=== PATIENT | male | born 1990 | race Caucasian/White ===

== ENCOUNTER 2024-06-04 10:24 | Emergency (ER) | payer OTHER, SELFPAY ==
[2024-06-04 10:31] VITALS: BP 153/94; PULSE 80; RESP 18; TEMP 37.3; O2SAT 100
--- NOTE | 2024-06-04 10:45 | ED_ITS ---
HPI - Dental/Oral General Chief complaint: Dental/Oral Stated complaint: Toothache Time Seen by Provider: 06/04/24 11:01 Mode of arrival: ambulatory Limitations: no limitations History of Present Illness HPI Narrative: 33-year-old male presents with concern for right lower dental pain. Reports he has had some symptoms for about 2-3 months foot over the last 2 days it has gotten worse. He reports swelling in the area. He has a dentist appointment and Karen JOSHUA Complaint: tooth pain Related Data Allergies Allergy/AdvReac Type Severity Reaction Status Date / Time No Known Allergies Allergy Mild Verified 06/04/24 10:42 Review of Systems Review of Systems: CONSTITUTIONAL: Denies malaise, chills, sweats, or fever. EYES: Denies visual changes ENT: Denies rhinorrhea, congestion, sinus pain, otalgia or sore throat. Reports right lower dental pain CARDIOVASCULAR: Denies chest pain, palpitations RESPIRATORY: Denies cough or dyspnea. SKIN: Denies rash or itching. MUSCULOSKELETAL: Denies myalgia. NEUROLOGIC: Denies numbness, weakness, or headache. All systems reviewed & are unremarkable except as noted in HPI and below PMFSH Comments At time of signature, agree with nursing past medical, surgical, social and family history. There is no relevant family history pertinent to the presenting complaint Exam Narrative: GENERAL: Well-appearing, well-nourished, and in no acute distress. HEAD: Normocephalic, atraumatic. EYES: PERRLA, sclera clear ENT: Nares clear, turbinates pink, no rhinorrhea or epistaxis. Mucous membranes moist. TM pearly alicea with sharp light reflex bilaterally; no tragal tenderness. Oropharynx without erythema or lesions. Tonsils not enlarged and without exudate. No Missing teeth, broken teeth. caries noted with swelling in the right jaw NECK: Supple. No lymphadenopathy. CHEST: No respiratory distress. Speaks in full sentences. HEART: Regular rate and rhythm. SKIN: Warm, dry, no visible rash. NEURO: Alert and oriented x3. PSYCH: Normal mood and affect Course Course Emergency Course: Patient is aware of diagnosis, understands and agrees to treatment plan. Anticipatory guidance given. Patient agrees to follow-up as directed and is a horvath of reasons to seek care at the emergency department. Portions of this record may have been created with voice recognition software Level of Care: Express Care Visit Vital Signs Vital signs: Vital Signs Temperature 99.2 F 06/04/24 10:31 Pulse Rate 80 06/04/24 10:31 Respiratory Rate 18 06/04/24 10:31 Blood Pressure 153/94 H 06/04/24 10:31 Pulse Oximetry 100 06/04/24 10:31 Oxygen Delivery Room Air 06/04/24 10:31 Temperature 99.2 F 06/04/24 10:31 Pulse Rate 80 06/04/24 10:31 Respiratory Rate 18 06/04/24 10:31 Blood Pressure 153/94 H 06/04/24 10:31 Pulse Oximetry 100 06/04/24 10:31 Oxygen Delivery Room Air 06/04/24 10:31 Reviewed. MDM - Dental/Oral MDM Narrative Medical decision making narrative: I evaluated this in the [facility]. History is obtained from patient who is an independent historian and physical exam was performed.? Available medical records were reviewed. ? Exam findings and relevant testing show no acute concerns or changes; patient is non-toxic appearing and is in no distress. Patients pain and complaint coupled with physical findings are consistant with dentalgia. There are no focal signs of space occupying lesions that are compromising to the airway; no dysphagia, odynophagia, dysphonia, or dyspnea. No uvular deviation or soft palate edema. Patient is non-toxic appearing. The floor of the mouth is soft with no signs of Edilberto's Angina; no induration below mandible, no neck pain. Patient is without trismus or drooling and able to swallow secretions. Patient is felt appropriate for discharge home with dental follow up. ? Differential diagnosis and treatment plan were discussed with the patient. Patient agrees with discussion and after shared medical decision making agrees with plan of care. All questions were answered to the patient's satisfaction. Patient is appropriate for outpatient treatment and follow-up. Differential Diagnosis Differential diagnosis: Likely gingival abscess, dental caries, toothache, dental abscess, fracture of tooth and aphthous ulcer Critical Care Time Critical Care Time Critical Care Time: No Discharge Plan Discharge Clinical Impression: Toothache Patient Disposition: Home, Self-Care Condition: Stable Instructions: Antibiotic Form, Toothache (ED) Additional Instructions: Take antibiotic as directed Avoid temperature extremes May apply heat or ice to the face Gentle brushing and flossing Take 2 extra strength Tylenol, 4 ibuprofen, 80 mg of caffeine at same time. You can do this every 6 hours. Do not do this for more than 2 - 3 days. You can substitute 25 mg Benadryl at nighttime for caffeine to help you sleep. Do this for no more than 3 days. Follow-up with the dentist as soon as possible - see the list provided Patient Language: Estonian Prescriptions: New clindamycin HCl 300 mg capsule 300 mg PO Q8H 7 Days Qty: 21 0RF Follow-up/Referrals: Soham,Dorina Guzman APN [Primary Care Provider] - Time of Disposition: 11:09
--- OUTSIDE RECORDS SUMMARY | 2024-06-04 11:32 | XMS_ITS | Patient Health Summary ---
Author Organization [facility] Address [address] [place] [address] Care Team Providers Care Angle Shearer Name Role Phone Nikki Jonas Primary Care Provider Note from [facility],non-owned Affiliates and Associated Physician Practices is amultiple site organization consisting of ambulatory clinics and hospital sitesin [place], [place], [place] and [place]. This disclosure is being madepursuant to the Care Everywhere program and may not contain all information available regarding this patient. Last updated 18.[facility] Allergies * Hydrocodone(Rash) -High Criticality Medications * Be aware that medications may not be up to date on this document. Alwaysverify current medications with the patient. * phytonadione (MEPHYTON) 5 MG tablet(Started 01/25/2018) Take 8 tablets by mouth once daily 1 refill remaining Active Problems Problem Noted Date Diagnosed Date Acute blood loss anemia 01/21/2018 Social History Tobacco Use Types Packs/Day Years Used Date Smoking Tobacco: Former Cigarettes 0.5 2 2 006 - 2008 Smokeless Tobacco: Never Alcohol Use Standard Drinks/Week Comments No 0 (1 standard drink = 0.6 oz pur e alcohol) Sex and Gender Information Value Date Recorded Sex Assigned at Not on file Gender Identity Not on file Sexual Orientation Not on file Last Filed Vital Signs Vital Sign Reading Time Taken Comments Blood Pressure 126/72 01/24/2018 3:32 PM CDT Pulse 73 01/24/2018 3:32 PM CDT Temperature 37.2 C (99 F) 01/24/2018 3:32 PM CDT Respiratory Rate 16 01/24/2018 11:37 AM CDT Oxygen Saturation 100% 01/24/2018 3:32 PM CDT Inhaled Oxygen Concentration - - Weight 71.4 kg (157 lb 6.4 oz) 01/24/2018 4:28 A M CDT Height 182.9 cm (6') 01/21/2018 3:55 PM CDT Body Mass Index 21.35 01/21/2018 3:55 PM CDT Procedures * CARDIAC PROCEDURE ORDER(Performed 03/06/2018) * CARDIAC EKG ORDER(Performed 01/29/2018) * LAB RESULTS ORDER(Performed 01/29/2018) * PTT [facility](Performed 01/24/2018) * CBC W/O DIFFERENTIAL(Performed 01/24/2018) * PT-INR [facility](Performed 01/24/2018) * COMPREHENSIVE METABOLIC PANEL(Performed 01/24/2018) * FACTOR VIII ASSAY [facility](Performed 01/23/2018) * PT-INR [facility](Performed 01/23/2018) * COMPREHENSIVE METABOLIC PANEL(Performed 01/23/2018) * CBC W/O DIFFERENTIAL(Performed 01/23/2018) * CBC W/O DIFFERENTIAL(Performed 01/23/2018) * TRANSFUSE FRESH FROZEN PLASMA UNIT(S)(Performed 01/23/2018) * TRANSFUSE RED BLOOD CELL LEUKOREDUCED UNIT(S)(Performed 01/23/2018) * CBC W/O DIFFERENTIAL(Performed 01/22/2018) * LAB MISC TEST (NOT BLOOD)(Performed 01/22/2018) * PT INHIBITOR SCREEN(Performed 01/22/2018) * PT-INR [facility](Performed 01/22/2018) * FACTOR VII ASSAY(Performed 01/22/2018) * FACTOR II ASSAY(Performed 01/22/2018) * PTT INHIBITOR(Performed 01/22/2018) * CBC W/O DIFFERENTIAL(Performed 01/22/2018) * CBC W/O DIFFERENTIAL(Performed 01/22/2018) * FACTOR V ASSAY(Performed 01/22/2018) * PT-INR [facility](Performed 01/22/2018) * TRANSFUSE FRESH FROZEN PLASMA UNIT(S)(Performed 01/22/2018) * TRANSFUSE FRESH FROZEN PLASMA UNIT(S)(Performed 01/22/2018) * TRANSFUSE RED BLOOD CELL LEUKOREDUCED UNIT(S)(Performed 01/22/2018) * CBC W/O DIFFERENTIAL(Performed 01/22/2018) * CT ABDOMEN PELVIS W CONTRAST(Performed 01/22/2018) Performed for Acute blood loss anemia * PTT [facility](Performed 01/22/2018) * PT-INR [facility](Performed 01/22/2018) * COMPREHENSIVE METABOLIC PANEL(Performed 01/22/2018) * CBC W/O DIFFERENTIAL(Performed 01/22/2018) * LAB MISC TEST(Performed 01/22/2018) * PT-INR [facility](Performed 01/22/2018) * CBC W/O DIFFERENTIAL(Performed 01/22/2018) * EKG 12-LEAD(Performed 01/21/2018) Performed for Elevated INR * ABO TYPE: RETYPE-PATIENT RESULT ONLY(Performed 01/21/2018) * URINALYSIS REFLEX TO MICROSCOPIC NO CULTURE(Performed 01/21/2018) * URINE DRUG SCREEN IMMUNOASSAY(Performed 01/21/2018) * DRUG SCREEN EXPANDED TOXICOLOGY URINE PANEL(Performed 01/21/2018) * CULTURE URINE(Performed 01/21/2018) * CULTURE BLOOD(Performed 01/21/2018) * PATHOLOGY PERIPHERAL SMEAR REVIEW(Performed 01/21/2018) * PREPARE FFP UNIT(S)(Performed 01/21/2018) * PREPARE RBC LEUKOREDUCED UNIT(Performed 01/21/2018) * PREPARE FFP UNIT(S)(Performed 01/21/2018) * PREPARE RBC LEUKOREDUCED UNIT(Performed 01/21/2018) * PREPARE RBC LEUKOREDUCED UNIT(Performed 01/21/2018) * TYPE + SCREEN PANEL(Performed 01/21/2018) * SALICYLATE LEVEL BLOOD(Performed 01/21/2018) * ACETAMINOPHEN LEVEL(Performed 01/21/2018) * FIBRINOGEN ACTIVITY(Performed 01/21/2018) * BASIC METABOLIC PANEL (CALCIUM TOTAL)(Performed 01/21/2018) * GGT(Performed 01/21/2018) * DIFFERENTIAL MANUAL(Performed 01/21/2018) * WARFARIN LEVEL(Performed 01/21/2018) * LDH BLOOD(Performed 01/21/2018) * HEPATIC FUNCTION PANEL(Performed 01/21/2018) * CBC W AUTO DIFFERENTIAL(Performed 01/21/2018) * PHOSPHORUS BLOOD(Performed 01/21/2018) * MAGNESIUM BLOOD(Performed 01/21/2018) * LACTIC ACID BLOOD(Performed 01/21/2018) * PTT [facility](Performed 01/21/2018) * PT-INR [facility](Performed 01/21/2018) * MANUAL DIFFERENTIAL REVIEWED(Performed 01/21/2018) * CULTURE BLOOD(Performed 01/21/2018) Results * CARDIAC PROCEDURE ORDER (03/06/2018 8:11 AM ELECTR[employer]OR [employer]SEMBLER) Narrative 03/06/2018 8:11 AM [employer]BLER Ordered by an unspecified provider. Scanned Document CARDIAC SERVICES ORD ERABLES * CARDIAC EKG ORDER (01/29/2018 2:14 PM CDT) Narrative 01/29/2018 2:14 PM CDT Ordered by an unspecified provider. Scanned Document CARDIAC SERVICES ORD ERABLES * LAB RESULTS ORDER (01/29/2018 11:26 AM CDT) Narrative 01/29/2018 11:26 AM CDT Ordered by an unspecified provider. Scanned Document LAB - THERAPEUTIC DR UG MONITORING ORDERABLES * (ABNORMAL) PTT [facility] (01/24/2018 10:35 AM CDT) Only the most recent of3 resultswithin the time period is included. APTT 58.2(H) 23.0 - 38.4 Seconds 01/24/2018 11:04 AM CDT [facility] Comment: Suggested therapeutic range for full dose I.V. heparin therapy for venous thromboembolism is 66.0-91.0 seconds. Blood BLOOD SPECIMEN / Unknown Lab Venipuncture / Unknown 01/24/2018 10:35 AM CDT 01/24/2018 10:51 AM CDT Morena Mcduffie MD LAB - COAGULATION OR DERABLES [facility] [address] [phone] * (ABNORMAL) PT-INR [facility] (01/24/2018 10:35 AM CDT) Only the most recent of7 resultswithin the time period is included. Pathologist [facility] PT 24.0(H) 12.1 - 14.8 Seconds 01/24/2018 11:03 AM [facility] INR 2.2 See Comment 01/24/2018 11:03 AM [facility] Comment: The suggested therapeutic range for standard coumadin (warfarin) therapy is an INR of 2.0-3.0. For high-risk patients (Mechanical Mitral Valve Prosthesis, etc.), the suggested prophylactic therapeutic range is an INR of 2.5-3.5. Blood BLOOD SPECIMEN / Unknown Lab Venipuncture / Unknown 01/24/2018 10:35 AM CDT 01/24/2018 10:51 AM CDT Oz Beverly DO LAB - COAGULATION OR DERABLES Performing Organization Address City/State/[facility] Co de Phone Number [address] [phone] * (ABNORMAL) CBC W/O DIFFERENTIAL (01/24/2018 10:35 AM CDT) Only the most recent of9 resultswithin the time period is included. WBC 10.8(H) 3.5 - 10.5 10 3/uL 01/24/2018 10:56 AM [facility] RBC 2.98(L) 4.30 - 5.70 10 6/uL 01/24/2018 10:56 AM [facility] Hemoglobin 9.2(L) 13.5 - 17.5 g/dL 01/24/2018 10:56 AM [facility] Hematocrit 27.9(L) 39.0 - 50.0 % 01/24/2018 10:56 AM [facility] MCV 93.6 81.0 - 97.0 fL 01/24/2018 10:56 AM [facility] MCH 30.9 28.0 - 34.0 pg 01/24/2018 10:56 AM [facility] MCHC 33.0 32.0 - 36.0 g/dL 01/24/2018 10:56 AM [facility] Platelet Count 531(H) 150 - 400 10 3/uL 01/24/2018 10:56 AM [facility] RDW-SD 45.8 36.0 - 50.0 fL 01/24/2018 10:56 AM [facility] RDW-CV 13.7 11.2 - 14.8 % 01/24/2018 10:56 AM [facility] MPV 8.9(L) 9.3 - 12.8 fL 01/24/2018 10:56 AM [facility] Blood BLOOD SPECIMEN / Unknown Lab Venipuncture / Unknown 01/24/2018 10:35 AM CDT 01/24/2018 10:51 AM CDT Reagan Jenkins DO LAB - HEMATOLOGY ORD ERABLES [facility] [address] [phone] * (ABNORMAL) COMPREHENSIVE METABOLIC PANEL (01/24/2018 10:35 AM CDT) Only the most recent of3 resultswithin the time period is included. BUN 11 7 - 26 mg/dL 01/24/2018 11:27 AM [facility] Creatinine 0.8 0.6 - 1.2 mg/dL 01/24/2018 11:27 AM [facility] Sodium 142 136 - 145 mmol/L 01/24/2018 11:27 AM [facility] Potassium 3.7 3.5 - 4.5 mmol/L 01/24/2018 11:27 AM [facility] Chloride 104 98 - 107 mmol/L 01/24/2018 11:27 AM [facility] CO2 26 22 - 29 mmol/L 01/24/2018 11:27 AM [facility] Glucose 110 70 - 115 mg/dL 01/24/2018 11:27 AM [facility] Calcium 9.4 8.4 - 10.2 mg/dL 01/24/2018 11:27 AM [facility] Protein Total 6.5 6.0 - 8.3 g/dL 01/24/2018 11:27 AM [facility] Albumin 3.3(L) 3.4 - 5.0 g/dL 01/24/2018 11:27 AM [facility] Bilirubin Total 1.7(H) 0.2 - 1.2 mg/dL 01/24/2018 11:27 AM [facility] Alkaline Phosphatase 58 40 - 150 Units/L 01/24/2018 11:27 AM [facility] ALT 12 0 - 55 Units/L 01/24/2018 11:27 AM [facility] AST 19 5 - 34 Units/L 01/24/2018 11:27 AM [facility] Anion Gap 16 8 - 18 01/24/2018 11:27 AM [facility] BUN/Creatinine Ratio 14 7 - 23 01/24/2018 11:27 AM [facility] Osmolality Calculated 294 270 - 300 mOsm/kg 01/24/2018 11:27 AM [facility] Albumin/Globulin Ratio 1.0(L) 1.1 - 2.3 01/24/2018 11:27 AM [facility] eGFR >60 >60 mL/min/1.7 3 m2 01/24/2018 11:27 AM [facility] Blood BLOOD SPECIMEN / Unknown Lab Venipuncture / Unknown 01/24/2018 10:35 AM CDT 01/24/2018 10:51 AM T Oz Beverly DO LAB - CHEMISTRY MARITZA NUNN [address] [phone] * FACTOR VIII ASSAY [facility] (01/23/2018 9:55 AM CDT) Pathologist [facility] Factor VIII Activity 218 45 - 225 U/dL 01/23/2018 11:34 AM [facility] Comment: Biologic population variability within the Factor VIII Activity reference range is strongly correlated with ABO blood group phenotype. Blood group specific ranges are as follows: BLOOD TYPE O: Factor VIII = 45-180 BLOOD TYPE A: Factor VIII = 60-200 BLOOD TYPE B AND AB COMBINED: Factor VIII = 80-225 Increased levels of Factor VIII Activity may be observed in patients with liver disease, inflammatory disease, uremia, vasculitis and generalized, advanced atherosclerosis. Blood BLOOD SPECIMEN / Unknown Venipuncture / Unknown 01/23/2018 9:55 AM CDT 01/23/2018 9:58 AM CDT Aleksander Rodriguez MD LAB - COAGULAT ION ORDERABLES Performing Organization Address City/[facility]/ZIP Co de Phone Number [facility] [address] [place] [address] * TRANSFUSE FRESH FROZEN PLASMA UNIT(S) (01/23/2018 4:12 AM CDT) Monica Mesa MD NURSING - BLOOD PROD TRANSFUSION * TRANSFUSE RED BLOOD CELL UNIT(S) (01/23/2018 2:08 AM CDT) Monica Mesa MD NURSING - BLOOD PROD TRANSFUSION * LAB MISC TEST (NOT BLOOD) (01/22/2018 6:38 PM CDT) Test Name 02/08/2018 2:34 PM CDT [facility] RE[facility] NON INTERF Test Result 02/08/2018 2:34 PM CDT [facility] NON INTERF Comment Ref Lab 8 2:34 PM CDT [facility] NON INTERF Other URINE / Unknown Collection / Unknown 01/22/2018 6:38 PM CDT 01/22/2018 6:38 PM CDT Oz Beverly DO LAB - BODY FLUID ORD ERABLES Performing Organization Address [facility]/ZIP Co de Phone Number [facility] NON INTERF [address] * (ABNORMAL) PT INHIBITOR SCREEN (01/22/2018 6:27 PM CDT) PT 21.2(H) 12.1 - 14.8 Seconds 01/23/2018 1:17 PM CDT [facility] Interpretation PT Inhibitor Negative Negative 01/23/2018 1:17 PM CDT [facility] PTI Patient Seconds 0 Min 14.7(L) 14.8 - 18.0 Seconds 01/23/2018 1:17 PM CDT [facility] PTi Patient Seconds 60 Min 15.1(L) 16.1 - 19.7 Seconds 01/23/2018 1:17 PM CDT [facility] Blood BLOOD SPECIMEN / Unknown Lab Venipuncture / Unknown 01/22/2018 6:27 PM CDT 01/23/2018 7:45 AM CDT Shayne Mariee MD LAB - COAGULATION OR DERABLES Performing Organization Address City/[facility]/ZIP Co de Phone Number [address] [phone] * (ABNORMAL) FACTOR VII ASSAY (01/22/2018 6:27 PM CDT) Factor VII Activity 55(L) 65 - 190 U/dL 01/23/2018 10:20 AM CDT [facility] Blood BLOOD SPECIMEN / Unknown Venipuncture / Unknown 01/22/2018 6:27 PM CDT 01/22/2018 6:30 PM CDT Shayne Mariee MD LAB - COAGULATION OR DERABLES Performing Organization Address [facility] Co de Phone Number [address] [phone] * (ABNORMAL) FACTOR II ASSAY (01/22/2018 6:27 PM CDT) Factor II Activity 26(L) 70 - 120 U/dL 01/23/2018 10:13 AM CDT [facility] Blood BLOOD SPECIMEN / Unknown Venipuncture / Unknown 01/22/2018 6:27 PM CDT 01/22/2018 6:30 PM CDT Narrative Authorizing Provider Result Eli Mariee MD LAB - COAGULATION OR DERABLES Performing Organization Address [facility] Co de Phone Number [address] [phone] * (ABNORMAL) PTT INHIBITOR (01/22/2018 6:27 PM CDT) APTT 50.3(H) 23.0 - 38.4 Seconds 01/23/2018 1:17 PM CDT [facility] Interpretation APTT Inhibitor Negative Negative 01/23/2018 1:17 PM CDT [facility] APTTI Patient Seconds 0 min 34.3 29.8 - 36.5 Seconds 01/23/2018 1:17 PM CDT [facility] APTTI Patient Seconds 60 Mins 35.1 30.5 - 39.4 Seconds 01/23/2018 1:17 PM CDT [facility] Blood BLOOD SPECIMEN / Unknown Venipuncture / Unknown 01/22/2018 6:27 PM CDT 01/22/2018 6:30 PM CDT Shayne Mariee MD LAB - COAGULATION OR DERABLES Performing Organization Address [facility] Co de Phone Number [address] [phone] * TRANSFUSE FRESH FROZEN PLASMA UNIT(S) [facility] (01/22/2018 2:53 PM CDT) Oz Beverly DO NURSING - BLOOD PROD TRANSFUSION * FACTOR V ASSAY (01/22/2018 2:53 PM CDT) Factor V Activity 124 60 - 140 U/dL 01/23/2018 9:44 AM CDT [facility] Blood BLOOD SPECIMEN / Unknown Lab Venipuncture / Unknown 01/22/2018 2:53 PM CDT 01/22/2018 4:36 PM CDT Shayne Mariee MD LAB - COAGULATION OR DERABLES [address] [phone] * TRANSFUSE FRESH FROZEN PLASMA UNIT(S) [facility] (01/22/2018 2:25 PM CDT) Oz Beverly DO NURSING - BLOOD PROD TRANSFUSION * TRANSFUSE RED BLOOD CELL UNIT (S) PRBC (01/22/2018 1:17 PM CDT) zO Beverly DO NURSING - BLOOD PROD TRANSFUSION * CT ABDOMEN PELVIS W CONTRAST (01/22/2018 9:32 AM CDT) Anatomical Region Laterality Modality Abdomen, Pelvis Computed Tomogra phy 01/22/2018 9:43 AM CDT Impressions 01/24/2018 1:24 PM CDT IMPRESSION: Mild dilation of the right renal collecting system with urothelial wall thickening and enhancement along the course of the right ureter. Fat stranding extending to the right inferior perirenal space may represent inflammation/infection. Alternatively, this may represent hemorrhage along the ureter in this patient with elevated INR although this is an unusual appearance. Edematous right iliopsoas muscle may reflect hemorrhage. No evidence of nephrolithiasis. Preliminary findings discussed by Dr. Julien with Dr. Dailey at 4:00pm on 01/22/2018. Dictated by Nikky Julien MD (president [employer]). This report was approved by Nikky Julien M.D. on 01/22/2018 4:23 PM . I, Dr. Anamaria AVENDANO M.D. have personally reviewed and interpreted this examination/study. This report was electronically signed by Anamraia AVENDANO M.D. on 01/24/2018 1:24 PM . Narrative 01/24/2018 1:24 PM CDT EXAMINATION: Computed tomography (CT) of the abdomen and pelvis with contrast HISTORY: Right kidney fluid collection with concern for retroperitoneal bleed TECHNIQUE: CT of the abdomen and pelvis was performed following the uneventful administration of 100 mL of Isovue-370 intravenous contrast according to standard protocol. COMPARISON: No prior study is available for comparison. FINDINGS: The aorta is normal in course and caliber. The visible lung bases are clear. The heart size is normal without pericardial effusion. The liver enhances homogenously. The gallbladder is normal without evidence of wall thickening, pericholecystic fluid, or gallstones. The intrahepatic and extrahepatic bile ducts are nondilated. The spleen enhances homogenously without focal lesion. The pancreas and adrenal glands are normal. There is mild dilation of the right renal collecting system with urothelial wall thickening and enhancement along the course of the right ureter and surrounding fat stranding. Inflammation extends to the right inferior perirenal space. A delayed right nephrogram is present. The left kidney appears normal. There is no evidence of renal calculus or hydronephrosis. The distal esophagus and stomach appear normal. The small bowel and large bowel are normal in caliber without evidence of wall thickening or obstruction. The appendix appears normal without appendicolith or surrounding inflammatory changes. No free air or free fluid is identified within the abdomen although there is mild presacral fat stranding. There is no abdominal lymphadenopathy. The urinary bladder is distended with fluid and appears normal. The prostate appears normal. No free fluid is seen within the pelvis. There is no pelvic lymphadenopathy. Bone windows demonstrate no suspicious lytic or blastic lesions. The visible osseous structures are intact. The right iliopsoas muscle is edematous along its entire length. Procedure Note Cortney Avendano MD - 01/24/2018 EXAMINATION: Computed tomography (CT) of the abdomen and pelvis with contrast HISTORY: Right kidney fluid collection with concern for retroperitoneal bleed TECHNIQUE: CT of the abdomen and pelvis was performed following the uneventful administration of 100 mL of Isovue-370 intravenous contrast according to standard protocol. COMPARISON: No prior study is available for comparison. FINDINGS: The aorta is normal in course and caliber. The visible lung bases are clear. The heart size is normal without pericardial effusion. The liver enhances homogenously. The gallbladder is normal without evidence of wall thickening, pericholecystic fluid, or gallstones. The intrahepatic and extrahepatic bile ducts are nondilated. The spleen enhances homogenously without focal lesion. The pancreas and adrenal glands are normal. There is mild dilation of the right renal collecting system with urothelial wall thickening and enhancement along the course of the right ureter and surrounding fat stranding. Inflammation extends to the right inferior perirenal space. A delayed right nephrogram is present. Theleft kidney appears normal. There is no evidence of renal calculus or hydronephrosis. The distal esophagus and stomach appear normal. The small bowel andlarge bowel are normal in caliber without evidence of wall thickening or obstruction. The appendix appears normal without appendicolith or surrounding inflammatory changes. No free air or free fluid isidentified within the abdomen although there is mild presacral fat stranding. There is no abdominal lymphadenopathy. The urinary bladder is distended with fluid and appears normal. The prostate appears normal. No free fluid is seen within the pelvis. Thereis no pelvic lymphadenopathy. Bone windows demonstrate no suspicious lytic or blastic lesions. The visible osseous structures are intact. The right iliopsoas muscle is edematous along its entire length. IMPRESSION: Mild dilation of the right renal collecting system with urothelial wall thickening and enhancement along the course of the right ureter. Fat stranding extending to the right inferior perirenal space may represent inflammation/infection. Alternatively, this may represent hemorrhagealong the ureter in this patient with elevated INR although this is an unusual appearance. Edematous right iliopsoas muscle may reflect hemorrhage. No evidence of nephrolithiasis. Preliminary findings discussed by Dr. Julien with Dr. Dailey at 4:00pm on 01/22/2018. Dictated by Nikky Julien MD (president [employer]). This report was approved by Nikky Julien M.D. on 01/22/2018 4:23 PM. I, Dr. Anamaria AVENDANO M.D. have personally reviewed and interpretedthis examination/study. This report was electronically signed by Anamaria AVENDANO M.D. on 01/24/2018 1:24 PM . Shayne Mariee MD CT ORDERABLES * LAB MISC TEST (01/22/2018 12:38 AM CDT) Blood BLOOD SPECIMEN / Unknown Venipuncture / Unknown 01/22/2018 12:38 AM CDT 01/22/2018 12:40 AM CDT Shayne Mariee MD LAB SEND OUT [facility] NON INTERF [address] [place] [address] * EKG 12-LEAD (01/21/2018 7:01 PM CDT) Ventricular Rate 79 BPM [facility] Atrial Rate 79 BPM [facility] P-R Interval 120 ms [facility] QRS Duration ms 80 ms [facility] Q-T Interval ms 388 ms [facility] QTC Calculation (Bezet) 444 ms [facility] Calculated P [place] 75 degrees [facility] Calculated R [place] 78 degrees [facility] Calculated T [place] 52 degrees [facility] Interpretation EKG NORMAL SINUS RHYTHM NORMAL ECG NO PREVIOUS ECGS AVAILABLE Confirmed by MD Moisés, Karlie ([id number]), graphic editor Donavan Huggins ([id number]) on 02/14/2018 3:07:30 PM [facility] 01/21/2018 7:01 PM CDT 02/14/2018 3:07 PM CDT Shayne Mariee MD ECG ORDERABLES Performing Organization Address [facility] Co de Phone Number [facility] * RETYPE PATIENT (01/21/2018 6:04 PM CDT) ABO 01/21/2018 8:00 PM CDT [facility] Rh Type 01/21/2018 8:00 PM CDT [facility] Typem 01/21/2018 8:00 PM CDT [facility] Interpretation 01/21/2018 8:00 PM CDT [facility] Blood BLOOD SPECIMEN / Unknown Venipuncture / Unknown 01/21/2018 6:04 PM CDT 01/21/2018 6:45 PM CDT Narrative [facility] - 01/21/2018 8:00 PM CDT Re-type confirmed per [facility] Blood Bank policies & procedures. Results documented in department. Shayne Mariee MD LAB - BLOOD BANK ORD ERABLES Performing Organization Address [facility] Co de Phone Number [facility] [address] [place] [address] * DRUG SCREEN EXPANDED TOXICOLOGY URINE PANEL (01/21/2018 4:54 PM CDT) [facility] Drug Screen Expanded see scanned report 01/21/2018 9:31 PM CDT [facility] NON INTERF Urine URINE / Unknown Collection / Unknown 01/21/2018 4:54 PM CDT 01/21/2018 6:07 PM CDT Shayne Mariee MD LAB - URINE CHEMISTR Y ORDERABLES Performing Organization Address [facility] Co de Phone Number [facility] NON INTERF [address] [place] [address] * (ABNORMAL) URINALYSIS REFLEX TO MICROSCOPIC NO CULTURE (01/21/2018 4:54 PM CDT) Color UA Yellow Straw, Yellow, Colorless, Light Yellow 01/21/2018 5:56 PM [facility] Clarity UA Clear Clear 01/21/2018 5:56 PM [facility] Specific [place] UA 1.023 1.001 - 1.030 01/21/2018 5:56 PM [facility] pH UA 5.5 5.0 - 8.0 01/21/2018 5:56 PM [facility] Protein UA 20(A) <=20 mg/dL 01/21/2018 5:56 PM [facility] Glucose UA Negative Negative mg/dL 01/21/2018 5:56 PM [facility] Ketone UA Trace(A) Negative mg/dL 01/21/2018 5:56 PM [facility] Bilirubin UA Negative Negative mg/dL 01/21/2018 5:56 PM [facility] Blood UA Large(A) Negative 01/21/2018 5:56 PM [facility] Nitrite UA Negative Negative 01/21/2018 5:56 PM [facility] Leukocyte Esterase Negative Negative 01/21/2018 5:56 PM [facility] Urobilinogen UA <2.0 <2.0 mg/dL 8 5:56 PM [facility] RBC UA >100(H) 0 - 8 /HPF 01/21/2018 5:56 PM [facility] WBC UA 2 0 - 2 /HPF 01/21/2018 5:56 PM [facility] Squamous Epithelial Cells UA <1 0 - 1 /HPF 01/21/2018 5:56 PM [facility] Mucus UA Occasional( A) None /LPF 01/21/2018 5:56 PM [facility] Urine URINE SPECIMEN OBTAINED BY CLEAN CATCH PROCEDURE / Unknown Collection / Unknown 01/21/2018 4:54 PM CDT 01/21/2018 5:43 PM T Shayne Mariee MD LAB - URINALYSIS ORD ERABLES [facility] [address] [place] [address] * CULTURE URINE (01/21/2018 4:54 PM CDT) Culture Urine No growth (<100 CFU/mL) PATRICK 01/23/2018 6:56 AM CDT [facility] Urine URINE SPECIMEN OBTAINED BY CLEAN CATCH PROCEDURE / Unknown Collection / Unknown 01/21/2018 4:54 PM CDT 01/21/2018 5:42 PM CDT Shayne Mariee MD LAB - MICROBIOLOGY O RDERABLES [facility] [address] [place] [address], [facility] [phone] * (ABNORMAL) DRUG SCREEN TOX URINE PANEL (01/21/2018 4:54 PM CDT) Amphetamines Screen Urine Negative Negative : < 1000 ng/mL 01/21/2018 6:00 PM [facility] Barbiturates Screen Urine Negative Negative : < 200 ng/mL 01/21/2018 6:00 PM [facility] Benzodiazepine Screen Urine Negative Negative : < 200 ng/mL 01/21/2018 6:00 PM [facility] Opiates Urine Positive(A) Negative : < 300 ng/mL 01/21/2018 6:00 PM [facility] Comment: Positive urine opiate screening results should be confirmed by another generally accepted non-immunological method such as gas chromatography or mass spectrometry. Cocaine Metabolites Urine Negative Negative : < 300 ng/mL 01/21/2018 6:00 PM [facility] Phencyclidine Screen Urine Negative Negative : < 25 ng/ml 01/21/2018 6:00 PM [facility] Cannabinoids Screen Urine Negative Negative : <50 ng/mL 01/21/2018 6:00 PM [facility] Methadone Screen Urine Negative Negative : < 300 ng/mL 01/21/2018 6:00 PM [facility] Urine URINE / Unknown Collection / Unknown 01/21/2018 4:54 PM CDT 01/21/2018 5:44 PM T Narrative [facility] - 01/21/2018 6:00 PM CDT The Urine Toxicology Screening Panel does not screen for Propoxyphene, Meprobamate, Carisoprodol, Trazodone, wvey-beq-qyeatul medications and/or volatiles (Acetone, Isopropanol, Methanol or Ethylene Glycol). Ethanol, Salicylate, Acetaminophen, Tricyclic Antidepressants and several therapeutic drugs may be individually assayed in serum or plasma specimen. Toxicology testing by the [facility] is an aid to medical diagnosis and treatment of patients. No documented chain of custody was maintained. Results are intended to be used for clinical purposes only. Shayne Mariee MD LAB - URINE CHEMISTR Y ORDERABLES Performing Organization Address City/[facility]/ZIP Co de Phone Number [facility] [address] [place] [address], [facility] [phone] * CULTURE BLOOD (01/21/2018 4:52 PM CDT) Only the most recent of2 resultswithin the time period is included. Pathologist [facility] Culture No growth day 5 PATRICK 01/26/2018 7:30 PM CDT [facility] Blood PERIPHERAL BLOOD / Unknown Venipuncture / Unknown 01/21/2018 4:52 PM CDT 01/21/2018 4:52 PM CDT Shayne Mariee MD LAB - MICROBIOLOGY O RDERABLES Performing Organization Address City/[facility]/ZIP Co de Phone Number [facility] [address] [place] [address], [facility] [phone] * PREPARE (CROSSMATCH) RBC UNIT(S), 1 Units (01/21/2018 4:45 PM CDT) Only the most recent of3 resultswithin the time period is included. Unit Description LR Red Cells [facility] Unit ABO O [facility] Unit Rh POS [facility] Product Code RL1 [facility] Unit Donor # [id number] [facility] Unit Status transfused [facility] Product Number [id number] [facility] Blood Type Barcode 5100 [facility] Blood Bank BLOOD SPECIMEN / Unknown 01/21/2018 4:45 PM CDT 01/21/2018 5:02 PM CDT Monica Mesa MD LAB - BLOOD BAN K ORDERABLES Performing Organization Address City/[facility] Co de Phone Number [facility] [address] * PATHOLOGY PERIPHERAL SMEAR REVIEW (01/21/2018 4:45 PM CDT) Pathology Diff Review DIFFERENTIAL REVIEW - CONFIRMED DIFFERENTIAL REVIEW - CONFIRMED 8 2:40 PM CDT [facility] Comment: Clinical history: aGston is a 27-year-old man with history of hematuria and elevated INR. Microscopic findings: Review of the peripheral blood smear confirms the CBC data and differential counts. There is leukocytosis with absolute neutrophilia. There are no circulating blasts seen. The lymphocytes and monocytes are mature and morphologically unremarkable. The red blood cells are decreased in number, normocytic and normochromic with mild anisopoikilocytosis and polychromasia. There are no circulating nucleated red blood cells seen. There are no schistocytes seen. The platelet are normal in number and morphologically unremarkable. These findings can be seen in variety of conditions including but not limited to infection. Please correlate with clinical findings and microbiological results. Babar Dean MD Blood BLOOD SPECIMEN / Unknown Venipuncture / Unknown 01/21/2018 4:45 PM CDT 01/21/2018 4:52 PM CDT Shayne Mariee MD LAB - PATHOLOGY/CYTO LOGY ORDERABLES Performing Organization Address City/[facility]/ZIP Co de Phone Number [facility] [address] [phone] * PREPARE FFP UNIT(S), 1 Units (01/21/2018 4:45 PM CDT) Only the most recent of2 resultswithin the time period is included. Unit Description N/A [facility] Blood Bank BLOOD SPECIMEN / Unknown 01/21/2018 4:45 PM CDT 01/21/2018 5:02 PM CDT Monica Mesa MD LAB - BLOOD BAN K ORDERABLES Performing Organization Address City/[facility]/ZIP Co de Phone Number [facility] [address] [place] [address] * TYPE + SCREEN PANEL (01/21/2018 4:45 PM CDT) Pathologist [facility] Antibody Screen NEG 8 5:42 PM CDT [facility] ABO Rh O POS 01/21/2018 5:42 PM CDT [facility] Blood Bank BLOOD SPECIMEN / Unknown Venipuncture / Unknown 01/21/2018 4:45 PM CDT 01/21/2018 5:01 PM CDT Shayne Mariee MD LAB - BLOOD BANK ORD ERABLES Performing Organization Address [facility] Co de Phone Number [facility] [address] [place] [address] * (ABNORMAL) FIBRINOGEN ACTIVITY (01/21/2018 4:45 PM CDT) Pathologist [facility] Fibrinogen Clauss 668(H) 200 - 400 mg/dL 01/21/2018 6:07 PM CDT [facility] Blood BLOOD SPECIMEN / Unknown Venipuncture / Unknown 01/21/2018 4:45 PM CDT 01/21/2018 4:52 PM CDT Shayne Mariee MD LAB - COAGULATION OR DERABLES Performing Organization Address City/[facility]/ZIP Co de Phone Number [address] [phone] * (ABNORMAL) DIFFERENTIAL MANUAL (01/21/2018 4:45 PM CDT) Pathologist [facility] WBC (corrected for NRBC) 17.6 10 3/uL 01/21/2018 5:04 PM CDT [facility] Total Cell Count 100 01/21/2018 5:04 PM CDT [facility] Neutrophils Absolute Manual 13.55(H) 1.60 - 7.00 10 3/uL 01/21/2018 5:04 PM CDT [facility] Comment:(BANDS+SEGS) x WBC = NEUT # (ANC) Lymphocyte Absolute Manual 2.46 0.80 - 2.90 10 3/uL 01/21/2018 5:04 PM [facility] Monocytes Absolute Manual 1.58(H) 0.14 - 0.66 10 3/uL 01/21/2018 5:04 PM [facility] Neutrophil % Manual 77(H) 30 - 60 % 01/21/2018 5:04 PM [facility] Lymphocyte % Manual 14(L) 20 - 45 % 01/21/2018 5:04 PM [facility] Monocytes % Manual 9 2 - 10 % 01/21/2018 5:04 PM [facility] Platelet Estimate Adequate Adequate 01/21/2018 5:04 PM [facility] RBC Morphology Normal 01/21/2018 5:04 PM [facility] Blood BLOOD SPECIMEN / Unknown Venipuncture / Unknown 01/21/2018 4:45 PM CDT 01/21/2018 4:52 PM CDT Shayne Mariee MD LAB - HEMATOLOGY ORD ERABLES [facility] [address] [place] [address] * (ABNORMAL) CBC W AUTO DIFFERENTIAL (01/21/2018 4:45 PM CDT) WBC 17.6(H) 3.5 - 10.5 10 3/uL 01/21/2018 4:58 PM [facility] RBC 2.13(L) 4.30 - 5.70 10 6/uL 01/21/2018 4:58 PM [facility] Hemoglobin 6.6(L) 13.5 - 17.5 g/dL 01/21/2018 4:58 PM [facility] Hematocrit 19.5(L) 39.0 - 50.0 % 01/21/2018 4:58 PM [facility] MCV 91.5 81.0 - 97.0 fL 01/21/2018 4:58 PM [facility] MCH 31.0 28.0 - 34.0 pg 01/21/2018 4:58 PM [facility] MCHC 33.8 32.0 - 36.0 g/dL 01/21/2018 4:58 PM [facility] Platelet Count 385 150 - 400 10 3/uL 01/21/2018 4:58 PM [facility] RDW-SD 43.1 36.0 - 50.0 fL 01/21/2018 4:58 PM [facility] RDW-CV 12.8 11.2 - 14.8 % 01/21/2018 4:58 PM [facility] MPV 9.0(L) 9.3 - 12.8 fL 01/21/2018 4:58 PM [facility] Blood BLOOD SPECIMEN / Unknown Venipuncture / Unknown 01/21/2018 4:45 PM CDT 01/21/2018 4:52 PM CDT Shayne Mariee MD LAB - HEMATOLOGY ORD ERABLES Performing Organization Address City/State/[facility] Co de Phone Number [address] [phone] * (ABNORMAL) BASIC METABOLIC PANEL (CALCIUM TOTAL) (01/21/2018 4:45 PM CDT) BUN 27(H) 7 - 26 mg/dL 01/21/2018 5:22 PM [facility] Creatinine 1.4(H) 0.6 - 1.2 mg/dL 01/21/2018 5:22 PM [facility] Sodium 134(L) 136 - 145 mmol/L 01/21/2018 5:22 PM [facility] Potassium 3.8 3.5 - 4.5 mmol/L 01/21/2018 5:22 PM [facility] Chloride 96(L) 98 - 107 mmol/L 01/21/2018 5:22 PM [facility] CO2 25 22 - 29 mmol/L 01/21/2018 5:22 PM [facility] Glucose 105 70 - 115 mg/dL 01/21/2018 5:22 PM [facility] Calcium 8.9 8.4 - 10.2 mg/dL 01/21/2018 5:22 PM [facility] Anion Gap 17 8 - 18 01/21/2018 5:22 PM T [facility] BUN/Creatinine Ratio 19 7 - 23 01/21/2018 5:22 PM T [facility] Osmolality Calculated 283 270 - 300 mOsm/kg 01/21/2018 5:22 PM T [facility] eGFR 60(L) >60 mL/min/1.7 3 m2 01/21/2018 5:22 PM T [facility] Blood BLOOD SPECIMEN / Unknown Venipuncture / Unknown 01/21/2018 4:45 PM CDT 01/21/2018 4:53 PM CDT Keshawn Hutson MD LAB - CHEMISTRY [facility] [address] [phone] * PHOSPHORUS BLOOD (01/21/2018 4:45 PM CDT) Phosphorus 2.9 2.3 - 4.7 mg/dL 01/21/2018 5:22 PM T [facility] Blood BLOOD SPECIMEN / Unknown Venipuncture / Unknown 01/21/2018 4:45 PM CDT 01/21/2018 4:53 PM CDT Shayne Mariee MD LAB - CHEMISTRY [place] [address], [facility] [phone] * (ABNORMAL) HEPATIC FUNCTION PANEL (01/21/2018 4:45 PM CDT) Protein Total 6.0 6.0 - 8.3 g/dL 018 5:28 PM CDT [facility] Albumin 2.8(L) 3.4 - 5.0 g/dL 01/21/2018 5:28 PM CDT [facility] Bilirubin Total 0.8 0.2 - 1.2 mg/dL 12/25 5:28 PM CDT [facility] Bilirubin Conjugated 0.3 0.0 - 0.5 mg/dL 01/21/2018 5:28 PM CDT [facility] Bilirubin Unconjugated 0.5 Unconjugated Bilirubin is a calculated value: Reference ranges have not been established. mg/dL 01/21/2018 5:28 PM CDT [facility] Alkaline Phosphatase 53 40 - 150 Units/L 01/21/2018 5:28 PM CDT [facility] ALT 13 0 - 55 Units/L 01/21/2018 5:28 PM CDT [facility] AST 18 5 - 34 Units/L 01/21/2018 5:28 PM CDT [facility] Albumin/Globulin Ratio 0.9(L) 1.1 - 2.3 01/21/2018 5:28 PM CDT [facility] Blood BLOOD SPECIMEN / Unknown Venipuncture / Unknown 01/21/2018 4:45 PM CDT 01/21/2018 4:53 PM CDT Shayne Mariee MD LAB - CHEMISTRY [facility] [address] [phone] * MAGNESIUM BLOOD (01/21/2018 4:45 PM CDT) Magnesium 1.8 1.6 - 2.6 mg/dL 01/21/2018 5:22 PM CDT [facility] Blood BLOOD SPECIMEN / Unknown Venipuncture / Unknown 01/21/2018 4:45 PM CDT 01/21/2018 4:53 PM CDT Shayne Mariee MD LAB - CHEMISTRY [facility] [address] [phone] * LDH BLOOD (01/21/2018 4:45 PM CDT) LDH Total 174 125 - 243 Units/L 01/21/2018 5:23 PM CDT [facility] Blood BLOOD SPECIMEN / Unknown Venipuncture / Unknown 01/21/2018 4:45 PM CDT 01/21/2018 4:53 PM CDT Shayne Mariee MD LAB - CHEMISTRY [facility] NUNN Performing Organization Address [facility]/ZIP Co de Phone Number [address] [phone] * LACTIC ACID BLOOD (01/21/2018 4:45 PM CDT) Lactic Acid-Stat 1.1 0.5 - 2.2 mmol/L 01/21/2018 5:16 PM CDT [facility] Blood BLOOD SPECIMEN / Unknown Venipuncture / Unknown 01/21/2018 4:45 PM CDT 01/21/2018 4:53 PM CDT Shayne Mariee MD LAB - CHEMISTRY [facility] NUNN Performing Organization Address [facility]/ZIP Co de Phone Number [address] [phone] * GGT (01/21/2018 4:45 PM CDT) GGT 23 9 - 64 Units/L 01/21/2018 5:21 PM CDT [facility] Blood BLOOD SPECIMEN / Unknown Lab Venipuncture / Unknown 01/21/2018 4:45 PM CDT 01/21/2018 5:07 PM CDT Flaco Hartley MD LAB - CHEMISTRY O RDPHAN [address] [phone] * (ABNORMAL) SALICYLATE LEVEL BLOOD (01/21/2018 4:45 PM CDT) Salicylate <5(L) 15 - 30 mg/dL 01/21/2018 6:08 PM CDT [facility] Blood BLOOD SPECIMEN / Unknown 01/21/2018 4:45 PM CDT 01/21/2018 5:56 PM CDT Shayne Mariee MD LAB - CHEMISTRY [facility] [address] [phone] * WARFARIN LEVEL (01/21/2018 4:45 PM CDT) [facility] Warfarin None Detected 1.0 - 10.0 ug/mL 01/25/2018 11:06 PM CDT [facility] ([facility]) Comment: Verified by repeat analysis Detection Limit = 0.10 Blood BLOOD SPECIMEN / Unknown Venipuncture / Unknown 01/21/2018 4:45 PM CDT 01/21/2018 6:18 PM CDT Narrative [facility] ([facility]) - 01/25/2018 11:06 PM CDT Performed at: [address] [place] [address] [id number] Rate Examiner: Chidi Lopez MD, Phone: [phone] Shayne Mariee MD LAB - CHEMISTRY [facility] ([facility]) [address] * ACETAMINOPHEN LEVEL (01/21/2018 4:45 PM CDT) [facility] Acetaminophen <3.0 <30.0 mcg/mL 01/21/2018 6:08 PM CDT [facility] Blood BLOOD SPECIMEN / Unknown 01/21/2018 4:45 PM CDT 01/21/2018 5:56 PM CDT Shayne Mariee MD LAB - CHEMISTRY [facility] [address] [phone] * MANUAL DIFFERENTIAL REVIEWED (01/21/2018 4:44 PM CDT) [facility] Manual Differential Reviewed DIFFERENTIAL REVIEW - CONFIRMED DIFFERENTIAL REVIEW - CONFIRMED 01/22/2018 8:34 AM CDT [facility] BLOOD SPECIMEN / Unknown 01/21/2018 4:44 PM CDT 01/21/2018 4:53 PM CDT Shayne Mariee MD LAB - HEMATOLOGY ORD ERABLES [address] [phone] Care Teams Angle Shearer Relationship Specialty Start Date End Date Nikki Jonas PA [address] [place] [phone] PCP - General 01/22/18
--- OUTSIDE RECORDS SUMMARY | 2024-06-04 11:32 | XMS_ITS | Clinical Summary ---
Author Organization [facility] Address [address] [facility] [facility] [place] [address] Care Team Providers Care Casting And Curing Operator Name Role Phone Nikki Jonas Primary Care Provider [phone] Source Comments [facility],non-owned Affiliates and Associated Physician Practices is amultiple site organization consisting of ambulatory clinics and hospital sitesin [place], [place], [place] and [place]. This disclosure is being madepursuant to the Care Everywhere program and may not contain all information available regarding this patient. Last updated 18.[facility] [employer] Allergies Active Allergy Reactions Criticality Noted Date Comments Hydrocodone Rash High 01/21/2018 Tolerated morphine Medications * Be aware that medications may not be up to date on this document. Alwaysverify current medications with the patient. Medication Sig Dispensed Refills Start Date End Date Status phytonadione (MEPHYTON) 5 MG tablet Take 8 tablets by mouth once daily 30 tablet 1 01/25/2018 Active Active Problems Problem Noted Date Diagnosed Date Acute blood loss anemia 01/21/2018 Family History Medical History Relation Name Comments CAD (Coronary Artery Disease) Maternal Grandfather CAD (Coronary Artery Disease) Maternal Grandmother Hypertension Mother CAD (Coronary Artery Disease) Paternal Grandfather Dementia Paternal Grandmother Relation Name Status Comments Maternal Grandfather Maternal Grandmother Mother Paternal Grandfather Paternal Grandmother Social History Tobacco Use Types Packs/Day Years [...] Mass Index 21.35 01/21/2018 3:55 PM CDT Plan of Treatment Health Maintenance Due Date Last Done Comments HIV SCREENING 2004 HEPATITIS C SCREENING 12/03/2007 DTAP/TDAP/TD VACCINES (1 - Tdap) 2008 HEPATITIS B VACCINE (1 of 3 - 19+ 3-dose series) 2008 COVID-19 VACCINE ( - 2023-2 5 season) 2023 INFLUENZA VACCINE (#1) 2023 DEPRESSION SCREENING 04/24/2024 ZOSTER VACCINE (1 of 2) 12/08/2039 HIB VACCINE Aged Out No longer eligi ble based on patient's age to complete this topic HPV VACCINE Aged Out No longer eligi ble based on patient's age to complete this topic MENINGOCOCCAL (Group B) VACCINE Aged Out No longer eligible based on patient's age to complete this topic MENINGOCOCCAL VACCINE Aged Out No mahogany felix eligible based on patient's age to complete this topic PNEUMOCOCCAL VACCINE Aged Out No long er eligible based on patient's age to complete this topic Advance Directives * Full Code (Latest Code Status on File) Date Activated Date Inactivated Comments 01/21/2018 4:13 PM 01/24/2018 7:01 PM Care Teams Casting And Curing Operator Relationship Specialty Start Date End Date Nikki Jonas PA [address] [place] [phone] PCP - General 01/22/18
--- OUTSIDE RECORDS SUMMARY | 2024-06-04 11:32 | XMS_ITS | Referral Summary ---
Author Organization [facility] Address [address] [place] [address] Care Team Providers Care Remelt Sugar Boiler Name Role Phone CarmelaNadiya soniyolie LESLIE Unavailable [phone] Dorina Rousseau NP Primary Care Provider [phone] Encounters Date Type Department Care Team Description 05/10/[address] [facility] Medical [facility] Sports Medicine and Primary Care at [address] [address] Jagruti Steinberg MA MRI Authorization 05/10/[address] [facility] Medical [facility] Sports Medicine and Primary Care at [address] [address] Greyson Fall DO Anterior dislocation of right shoulder, sequela (Primary Dx) 05/10/[address] [facility] Medical [facility] Sports Medicine and Primary Care at [address] [address] Greyson Fall DO Anterior dislocation of right shoulder, sequela (Primary Dx) 04/08/[address] [facility] Medical [facility] Sports Medicine and Primary Care at [address] [address] Jagruti Steinberg MA MRI approval 04/08/2024 11:00 AM WASH BOX OPERATOR Office Visit [facility] Medical [facility] Sports Medicine and Primary Care at [address] [address] Greyson Fall DO Anterior dislocation of right shoulder, sequela (Primary Dx); Acute pain of right shoulder 03/29/2024 5:49 AM WASH BOX OPERATOR - 03/29/2024 8:49 AM [facility] Emergency [facility] Emergency Department [address] [place] [address] Papito George MD Anterior dislocation of right shoulder, initial encounter (Primary Dx) Discharge Disposition: Discharge to home or self care from Last 3 Months Allergies Active Allergy Reactions Criticality Noted Date Comments Codeine Hives Medium 08/15/2017 Hydrocodone Rash High 01/21/2018 Tolerated morphine Medications mirtazapine (REMERON) 15 mg tablet take 1 tablet by oral route every day before bedtime 0 0 6 Active Additional Information Patient not taking.Reported on 04/08/2024 clonazePAM (KlonoPIN) 0.5 mg tablet take 1 tablet by oral route 2 times every day 0 0 6 Active Additional Information Patient not taking.Reported on 04/08/2024 traZODone (DESYREL) 50 mg tablet take 1 to tablets at bedtime 0 0 6 Active Additional Information Patient not taking.Reported on 04/08/2024 HYDROcodone-acet aminophen (NORCO) 5-325 mg per tabletIndication s:Pain Take 1-2 tablets by mouth every 4 (four) hours as needed for pain. Do not exceed 8 tablets/day. 12 tablet 8 Active Additional Information Patient not taking.Reported on 04/08/2024 ibuprofen (ADVIL,MOTRIN) 600 mg tablet Take 1 tablet (600 mg total) by mouth 3 (three) times a day Take with food. 30 tablet 9 Active Additional Information Patient not taking.Reported on 04/08/2024 ondansetron (ZOFRAN) 4 mg tablet Take 1 tablet (4 mg total) by mouth every 6 (six) hours 6 tablet 9 Active Additional Information Patient not taking.Reported on 04/08/2024 oxyCODONE-acetam inophen (PERCOCET) 5-325 mg per tabletIndication s:Pain Take 1 tablet by mouth every 6 (six) hours as needed for pain 8 tablet 4 Active Additional Information Patient not taking.Reported on 04/08/2024 naloxone (NARCAN) 4 mg/actuation spray,non-aeroso lIndications:Opi ate-Induced Respiratory Depression,Opioi d Toxicity,risk mitigation for opioid overdose Administer 1 spray into affected nostril(s) as needed for opioid reversal or respiratory depression Call 911. Administer a single spray in one nostril. Repeat every 3 minutes as needed if no or minimal response. 1 each Active Additional Information Patient not taking.Reported on 04/08/2024 Active Problems Problem Noted Date Diagnosed Date Gastroesophageal reflux disease 09/07/2013 Overview (07/28/2016): GERD (gastroesophageal reflux disease) Immunizations Name Administration Dates Next Due TD Preservative Free 12/10/2014 Social History Tobacco Use Types Packs/Day Years Used Date Smoking Tobacco: Some Days Cigarettes Smokeless Tobacco: Never Tobacco Cessation:Ready to Q uit: Not Asked; Counseling Given: Not Answered Alcohol Use Standard Drinks/Week Comments Yes 25 (1 standard drink = 0.6 oz pu re alcohol) Personal Safety Answer Date Recorded Have you ever been in or are you currently in a harmful physical or emotional relationship or is someone making you feel afraid or unsafe? Denies 03/29/2024 Sex and Gender Information Value Date Recorded Sex Assigned at Not on file Legal Sex Male 12:11 PM WASH BOX OPERATOR Gender Identity Not on file Sexual Orientation Not on file Last Filed Vital Signs Vital Sign Reading Time Taken Comments Blood Pressure 138/71 04/08/2024 11:03 AM WASH BOX OPERATOR Pulse 79 04/08/2024 11:03 AM WASH BOX OPERATOR Temperature 36.4 C (97.6 F) 03/29/2024 5:48 AM WASH BOX OPERATOR Respiratory Rate 20 04/08/2024 11:03 AM WASH BOX OPERATOR Oxygen Saturation 100% 03/29/2024 8:30 AM WASH BOX OPERATOR Inhaled Oxygen Concentration - - Weight 82.4 kg (181 lb 9.6 oz) 04/08/2024 11:03 AM WASH BOX OPERATOR Height 182.9 cm (6') 04/08/2024 11:03 AM WASH BOX OPERATOR Body Mass Index 24.63 04/08/2024 11:03 AM WASH BOX OPERATOR Plan of Treatment Not on file Procedures Procedure Name Priority Date/Time Associated Diagnosis Comments [place] CLSD TX SHOULDER DISLC W/MANIPULATION W/O ANES Routine 03/29/2024 8:03 AM WASH BOX OPERATOR ED MODERATE SEDATION Routine 03/29/2024 8:01 AM WASH BOX OPERATOR XR SHOULDER RIGHT 2 OR MORE VIEWS ED 03/29/2024 7:56 AM WASH BOX OPERATOR XR SHOULDER RIGHT 2 OR MORE VIEWS ED 03/29/2024 6:29 AM WASH BOX OPERATOR from Last 3 Months Results * [place] CLSD TX SHOULDER DISLC W/MANIPULATION W/O ANES (03/29/2024 8:03 AM WASH BOX OPERATOR) Narrative Papito George MD - 03/29/2024 8:03 AM WASH BOX OPERATOR Papito George MD 03/29/2024 8:03 AM Orthopedic Injury Reduction/Treatment - Upper Extremity Date/Time: 03/29/2024 8:03 AM Performed by: Papito George MD Authorized by: Papito George MD Informed consent: Risks, benefits, alternatives discussed Consent form signed, dated, timed; matches correct patient, intended procedure and site: Yes Location: Shoulder Shoulder location: R shoulder Shoulder dislocation type: anterior Prosthetic: No Pre-procedure imaging: X-ray Imaging findings: dislocation present Distal perfusion: normal Sedation used: yes Manipulation performed: yes Shoulder reduction method: Milch technique Reduction successful: yes Reduction confirmed with imaging: yes Immobilization: Sling Neurological function: normal Distal perfusion: normal Range of motion: improved Patient tolerance of procedure: Tolerated well, no immediate complications All guidewires, needles, sponges or other items are accounted for: yes Papito George MD IN CLINIC/BEDSIDE ORDERABLES Final Result * Procedural Sedation (03/29/2024 8:01 AM WASH BOX OPERATOR) Narrative Papito George MD - 03/29/2024 8:01 AM WASH BOX OPERATOR Papito George MD 03/29/2024 8:02 AM Procedural Sedation Date/Time: 03/29/2024 8:01 AM Performed by: Papito George MD Authorized by: Papito George MD [place] Protocol: Informed consent: Risks, benefits, alternatives discussed Consent form signed, dated, timed; matches correct patient, intended procedure and site: Yes Indications: Sedation purpose: Dislocation reduction Pre-sedation assessment: Intended level of sedation: Moderate (conscious sedation) ASA classification: class 1 - normal, healthy patient Mallampati score: I - soft palate, uvula, fauces, pillars visible Planned medication(s): Etomidate. Dosing plan: Fixed dose Pre-sedation assessment completed and reviewed: Airway WNL Immediate pre-procedure details: Reviewed: Vital signs Verified: bag valve mask available Procedure details (see MAR for exact dosages): Preoxygenation: Nasal cannula Sedation: Etomidate Analgesia: Fentanyl Intra-procedure monitoring: Blood pressure monitoring Intra-procedure events: none Maximal depth of sedation: Moderate Post-procedure details: Patient is stable for discharge or admission: yes Patient tolerance: Tolerated well, no immediate complications us Papito George MD IN CLINIC/BEDSIDE ORDERABLES Final Result * XR Shoulder Right 2 or More Views (03/29/2024 7:56 AM WASH BOX OPERATOR) Anatomical Region Laterality Modality Upper Extremities, Shoulder Right Comp uted Radiography 03/29/2024 8:03 AM WASH BOX OPERATOR Narrative 03/29/2024 8:04 AM WASH BOX OPERATOR EXAM DESCRIPTION: XR SHOULDER RIGHT 2 OR MORE VIEWS REASON FOR STUDY: reduction Post reduction TECHNIQUE: 2 radiographic view(s) of the right shoulder . COMPARISON: 03/29/2024 FINDINGS: Interval right shoulder reduction. The glenohumeral joint is in anatomic alignment. No acute fracture identified. The soft tissues are unremarkable. IMPRESSION: Interval right shoulder reduction, in anatomic alignment. THIS IS AN ELECTRONICALLY VERIFIED FINAL REPORT 03/29/2024 8:04 AM - Electronically signed by Paulie Menezes M.D. KR: ALICE Report ID: [id number] Reading Location: [id number] Procedure Note Paulie Menezes MD - 03/29/2024 EXAM DESCRIPTION: XR SHOULDER RIGHT 2 OR MORE VIEWS REASON FOR STUDY: reduction Post reduction TECHNIQUE: 2 radiographic view(s) of the right shoulder . COMPARISON: 03/29/2024 FINDINGS: Interval right shoulder reduction. The glenohumeral joint is in anatomic alignment. No acute fracture identified. The soft tissues areunremarkable. IMPRESSION: Interval right shoulder reduction, in anatomic alignment. THIS IS AN ELECTRONICALLY VERIFIED FINAL REPORT 03/29/2024 8:04 AM - Electronically signed by Paulie Menezes M.D. KR: KR Report ID: [id number] Reading Location: [id number] us Papito George MD IMG XR PROCEDURES Final Resu lt * XR Shoulder Right 2 or More Views (03/29/2024 6:29 AM WASH BOX OPERATOR) Anatomical Region Laterality Modality Upper Extremities, Shoulder Right Comp uted Radiography 03/29/2024 6:40 AM WASH BOX OPERATOR Narrative 03/29/2024 6:41 AM WASH BOX OPERATOR EXAM DESCRIPTION: XR SHOULDER RIGHT 2 OR MORE VIEWS REASON FOR STUDY: pain C/o a seizure this morning and having right shoulder pain. Hx of dislocation to the right shoulder in the past. Best images obtained due to pt's ability to move arm TECHNIQUE: 3 radiographic view(s) of the right shoulder . COMPARISON: 09/29/2023 FINDINGS: BONES/JOINTS: There is anterior dislocation of the right humeral head with respect to the glenoid. No definitive associated fracture. Post reduction radiographs are recommended. The acromioclavicular joint is well aligned. SOFT TISSUES: Within normal limits. IMPRESSION: Anterior dislocation of the humeral head with respect to the glenoid. Post reduction radiographs recommended. THIS IS AN ELECTRONICALLY VERIFIED FINAL REPORT 03/29/2024 6:41 AM - Electronically signed by Octavia Thorpe M.D. TW: EVE Report ID: [id number] Reading Location: [id number] Procedure Note Octavia Thorpe MD - 03/29/2024 EXAM DESCRIPTION: XR SHOULDER RIGHT 2 OR MORE VIEWS REASON FOR STUDY: pain C/o a seizure this morning and having right shoulder pain. Hx ofdislocation to the right shoulder in the past. Best images obtained due to pt'sability to move arm TECHNIQUE: 3 radiographic view(s) of the right shoulder . COMPARISON: 09/29/2023 FINDINGS: BONES/JOINTS: There is anterior dislocation of the right humeral head with respect to the glenoid. No definitive associated fracture. Postreduction radiographs are recommended. The acromioclavicular joint is wellaligned. SOFT TISSUES: Within normal limits. IMPRESSION: Anterior dislocation of the humeral head with respect to the glenoid.Post reduction radiographs recommended. THIS IS AN ELECTRONICALLY VERIFIED FINAL REPORT 03/29/2024 6:41 AM - Electronically signed by Octavia Thorpe M.D. TW: TW Report ID: [id number] Reading Location: [place] [address] Papito George MD IMG XR PROCEDURES Final Resu lt from Last 3 Months Insurance [facility] OPEN ACCESS IDPA [facility] CHOICE PLUS Care Teams Remelt Sugar Boiler Relationship Specialty Start Date End Date Dorina Rousseau NP [address] [place] [address] PCP - General Nurse Practitioner 09/29/23 Nikki Jonas PA [address] [place] [address] 07/11/23
--- OUTSIDE RECORDS SUMMARY | 2024-06-04 11:32 | XMS_ITS | Referral Summary ---
Author Organization [facility] Address [address] [place] [address] Care Team Providers Care Shoulder Puncher Name Role Phone Nikki Jonas Primary Care Provider [phone] Source Comments [facility],non-owned Affiliates and Associated Physician Practices is amultiple site organization consisting of ambulatory clinics and hospital sitesin [place], [place], [place] and [place]. This disclosure is being madepursuant to the Care Everywhere program and may not contain all information available regarding this patient. Last updated 18.[facility] Allergies Active Allergy Reactions Criticality Noted Date [...] Mass Index 21.35 01/21/2018 3:55 PM CDT Functional Status Functional Status Response Date of Assess ment Is person deaf or have serious hearing difficult y? No 01/24/2018 Is person blind or have serious difficulty seein g? No 01/24/2018 Does person have serious dif ficulty walking/climbing stairs? No 01/24/2018 Does person have difficulty dressing/bathing? No 01/24/2018 Does person have difficulty doing errands alone? No 01/24/2018 Cognitive Status Response Date of Assessm ent Does person have difficulty concentrating/remembering/making decisions? No 01/24/2018 Plan of Treatment Not on file Advance Directives * Full Code (Latest Code Status on File) Date Activated Date Inactivated Comments 01/21/2018 4:13 PM 01/24/2018 7:01 PM Care Teams Shoulder Puncher Relationship Specialty Start Date End Date Nikki Jonas PA [address] [place] [address] PCP - General 01/22/18
--- OUTSIDE RECORDS SUMMARY | 2024-06-04 11:32 | XMS_ITS | Clinical Summary ---
Author Organization [facility] Address [address] [place] [address] Care Team Providers Care Modeling Manager Name Role Phone CarmelaNikki soni Cha LESLIE Unavailable [phone] Dorina Rousseau DATA COMMUNICATIONS ENGINEER Primary Care Provider Allergies Active Allergy Reactions Criticality Noted Date [...] if no or minimal response. 1 each 4 Active Additional Information Patient not taking.Reported on 04/08/2024 Active Problems Problem Noted Date Diagnosed Date Gastroesophageal reflux disease 09/07/2013 Overview (07/28/2016): GERD (gastroesophageal reflux disease) Encounters Date Type Department Care Team Description 05/10/2024 Telephone [facility] Medical [facility] Sports Medicine and Primary Care at [address] [address] Jagruti Steinberg MA MRI Authorization 05/10/2024 Orders Only [facility] Sports Medicine and Primary Care at [address] [address] Greyson Fall DO Anterior dislocation of right shoulder, sequela (Primary Dx) 05/10/2024 Orders Only [facility] Sports Medicine and Primary Care at [address] [place] [address] Greyson Fall DO Anterior dislocation of right shoulder, sequela (Primary Dx) 04/08/2024 11:00 AM STAGE ELECTRICIAN HELPER Office Visit [facility] Medical [facility] Sports Medicine and Primary Care at [address] [place] [address] Greyson Fall DO Anterior dislocation of right shoulder, sequela (Primary Dx); Acute pain of right shoulder 04/08/2024 Telephone [facility] Sports Medicine and Primary Care at [address] [place] [address] Jagruti Steinberg MA MRI approval 03/29/2024 5:49 AM STAGE ELECTRICIAN HELPER - 03/29/2024 8:49 AM STAGE ELECTRICIAN HELPER Emergency [facility] Emergency Department [address] [place] [address] Papito George MD Anterior dislocation of right shoulder, initial encounter (Primary Dx) Discharge Disposition: Discharge to home or self care from Last 3 Months Immunizations Name Administration Dates Next Due TD Preservative Free 12/10/2014 Medical History Medical History Date Comments Suicidal ideation Suicidal behavior without attempted self-injury Asthma Social History Tobacco Use Types Packs/Day Years [...] on file Legal Sex Male 12:11 PM STAGE ELECTRICIAN HELPER Gender Identity Not on file Sexual Orientation Not on file Obstetrics History Last Filed Vital Signs Vital Sign Reading Time Taken Comments Blood Pressure 138/71 04/08/2024 11:03 AM STAGE ELECTRICIAN HELPER Pulse 79 04/08/2024 11:03 AM STAGE ELECTRICIAN HELPER Temperature 36.4 C (97.6 F) 03/29/2024 5:48 AM STAGE ELECTRICIAN HELPER Respiratory Rate 20 04/08/2024 11:03 AM STAGE ELECTRICIAN HELPER Oxygen Saturation 100% 03/29/2024 8:30 AM STAGE ELECTRICIAN HELPER Inhaled Oxygen Concentration - - Weight 82.4 kg (181 lb 9.6 oz) 04/08/2024 11:03 AM STAGE ELECTRICIAN HELPER Height 182.9 cm (6') 04/08/2024 11:03 AM STAGE ELECTRICIAN HELPER Body Mass Index 24.63 04/08/2024 11:03 AM STAGE ELECTRICIAN HELPER Plan of Treatment Health Maintenance Due Date Last Done Comments Depression Screening 1989 Hepatitis C Screening 1989 Pneumococcal vaccine <65 (1 of 2 - PCV) 12/08/1995 Varicella Vaccines (1 of 2 - 13+ 2-dose series) 2002 Hepatitis B Screening 12/08/2007 Regular Well Visit/Exam 18-64 12/08/2007 DTaP/Tdap/Td Vaccine (5 - Tdap) 12/11/2014 12/10/2014, 11/26/1992, 07/11/1991, Additional history exists Influenza Vaccine (#1) 2023 HPV Vaccines Aged Out No longer eligi ble based on patient's age to complete this topic Procedures Procedure Name Priority Date/Time Associated Diagnosis Comments [place] CLSD TX SHOULDER DISLC W/MANIPULATION W/O ANES Routine 03/29/2024 8:03 AM STAGE ELECTRICIAN HELPER ED MODERATE SEDATION Routine 03/29/2024 8:01 AM STAGE ELECTRICIAN HELPER XR SHOULDER RIGHT 2 OR MORE VIEWS ED 03/29/2024 7:56 AM STAGE ELECTRICIAN HELPER XR SHOULDER RIGHT 2 OR MORE VIEWS ED 03/29/2024 6:29 AM STAGE ELECTRICIAN HELPER from Last 3 Months Results * [place] CLSD TX SHOULDER DISLC W/MANIPULATION W/O ANES (03/29/2024 8:03 AM STAGE ELECTRICIAN HELPER) Narrative Papito George MD - 03/29/2024 8:03 AM STAGE ELECTRICIAN HELPER Papito George MD 03/29/2024 8:03 AM Orthopedic [...] Result * Procedural Sedation (03/29/2024 8:01 AM STAGE ELECTRICIAN HELPER) Narrative Papito George MD - 03/29/2024 8:01 AM STAGE ELECTRICIAN HELPER Papito George MD 03/29/2024 8:02 AM Procedural Sedation Date/Time: 03/29/2024 8:01 AM Performed by: Papito George MD Authorized by: Papito George MD [place] Protocol: Informed consent: Risks, benefits, alternatives discussed [...] Patient tolerance: Tolerated well, no immediate complications Papito George MD IN CLINIC/BEDSIDE ORDERABLES Final Result * XR Shoulder Right 2 or More Views (03/29/2024 7:56 AM STAGE ELECTRICIAN HELPER) Anatomical Region Laterality Modality Upper Extremities, Shoulder Right Comp uted Radiography 03/29/2024 8:03 AM STAGE ELECTRICIAN HELPER Narrative 03/29/2024 8:04 AM STAGE ELECTRICIAN HELPER EXAM DESCRIPTION: XR SHOULDER RIGHT 2 OR [...] Paulie Menezes M.D. KR: ALICE Report ID: [id number] Reading Location: [id number] Procedure Note Paulie Menezes MD - 03/29/2024 [...] Paulie Menezes M.D. KR: ALICE Report ID: [id number] Reading Location: [id number] us Papito George MD IMG XR PROCEDURES Final Resu lt * XR Shoulder Right 2 or More Views (03/29/2024 6:29 AM STAGE ELECTRICIAN HELPER) Anatomical Region Laterality Modality Upper Extremities, Shoulder Right Comp uted Radiography 03/29/2024 6:40 AM STAGE ELECTRICIAN HELPER Narrative 03/29/2024 6:41 AM STAGE ELECTRICIAN HELPER EXAM DESCRIPTION: XR SHOULDER RIGHT 2 OR [...] Octavia Thorpe M.D. TW: TW Report ID: [id number] Reading Location: [id number] Procedure Note Octavia Thorpe MD - 03/29/2024 [...] Octavia Thorpe M.D. TW: TW Report ID: [id number] Reading Location: [id number] Papito George MD IMG XR PROCEDURES Final Resu lt from Last 3 Months Insurance [facility] OPEN ACCESS IDPA [facility] CHOICE PLUS [facility] HMO/PPO Address: [address] [address] [place] [address] Care Teams Modeling Manager Relationship Specialty Start Date End Date Dorina Rousseau NP [address] [place] [address] PCP - General Nurse Practitioner 09/29/23 Nikki Jonas PA [address] [place] [address] 07/11/23
--- OUTSIDE RECORDS SUMMARY | 2024-06-04 11:32 | XMS_ITS | Clinical Summary ---
Author Organization [facility] Address [address] [place] [address] Phone Care Team Providers Care Coordinator Of Library Services Name Role Phone Unavailable Primary Care Provider Unavailabl e Allergies Active Allergy Reactions Criticality Noted Date Comments Hydrocodone Rash High 01/21/2018 Tolerated morphine Medications acetaminophen (TYLENOL) 325 MG Tablet Take 1 Tablet by mouth every 6 hours as needed for Fever (for temperature greater than 100.4 F.). Do not exceed 4000 mg of acetaminophen in 24 hour from all sources. 1 Active oxyCODONE (ROXICODONE) 5 MG Tablet Take 1 Tablet by mouth every 4 hours as needed for Severe pain. 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 06/26/2020 Family History Medical History Relation Name Comments No Known Problems Brother 1 No Known Problems Brother 2 No Known Problems Daughter No Known Problems Father Heart Disease Maternal Grandfather Heart Surgery Maternal Grandfather Cancer Maternal Grandmother Hypertension Mother Heart Disease Paternal Grandfather Dementia Paternal Grandmother Relation Name Status Comments Brother 1 Alive Brother 2 Alive Daughter Alive Father Alive Maternal Grandfather Alive Maternal Grandmother Alive Mother Alive Paternal Grandfather Paternal Grandmother Social History Tobacco Use Types Packs/Day Years Used Date Smoking Tobacco: Never Smokeless Tobacco: Never Alcohol Use Standard Drinks/Week Comments Yes 2 (1 standard drink = 0.6 oz pur e alcohol) 12 pack a week Sexually Active Control Partners Comments Yes Female Sex and Gender Information Value Date Recorded Sex Assigned at Not on file Legal Sex Male 10:20 PM CDT Gender Identity Not on file Sexual Orientation Not on file Last Filed Vital Signs Vital Sign Reading Time Taken Comments Blood Pressure 124/70 08/04/2020 10:15 AM CDT Pulse 83 08/25/2020 3:06 PM CDT Temperature 36.7 C (98 F) 08/25/2020 3:06 PM CDT Respiratory Rate 16 07/20/2020 1:15 PM CDT Oxygen Saturation 96% 08/25/2020 3:06 PM CDT Inhaled Oxygen Concentration - - Weight 68 kg (150 lb) 08/25/2020 3:06 PM CDT Height 182.9 cm (6') 08/25/2020 3:06 PM CDT Body Mass Index 20.34 08/25/2020 3:06 PM CDT Plan of Treatment Health Maintenance Due Date Last Done Comments Hepatitis C Virus (HCV) Screening 1989 TdaP Immunization 1989 Hepatitis B Immunization (1 of 3 - 19+ 3-dose series) 2008 Influenza Immunization (#1) 2023 SARS-COV-2 Immunization ( season) 2023 Respiratory Syncytial Virus (RSV) Immunization (Adult) (1 - 1-dose 75+ series) 2064 DTaP/Tdap/Td Immunization Discontinued 2014, 11/26/1992, 07/11/1991, Additional history exists Meningococcal Immunization (ACWY) Aged Out No longer eligible based on patient's age to complete this topic Pneumococcal Immunization Combined Aged Out No longer eligible based on patient's age to complete this topic Rotavirus Immunization Aged Out No lo nger eligible based on patient's age to complete this topic Insurance MEDICAID [place] [facility]
== END 2024-06-04 11:10 | disposition home or self-care (01) ==
PROVIDERS: Emergency Provider Nurse Practitioner; PCP Nurse Practitioner Family
DX: K08.89 Other specified disorders of teeth and supporting structures (principal)
CPT/HCPCS: 99203; G0463